=== PATIENT | female | born 1975 | race Caucasian/White ===

== ENCOUNTER → 2016-10-20 | Outpatient (CLI) | payer BC ==
--- NOTE | 2016-10-20 13:23 | US ---
EXAMINATION TYPE: US venous doppler duplex LE DATE OF EXAM: 10/20/2016 12:39 PM COMPARISON: NONE CLINICAL HISTORY: M79.604 PAIN RT LEG,M79.605 PAIN LT LEG,I83.813 VARICOSE VEI. Left lower thigh redn ess. SIDE PERFORMED: Bilateral VESSELS IMAGED: External Iliac Vein (EIV) Common Femoral Vein Deep Femoral Vein Greater Saphenous Vein * Femoral Vein Popliteal Vein Proximal Calf Veins (* superficial vessels) TECHNOLOGIST IMPRESSION: bilateral leg pain x several years , patient has history of varicose vein s tripping. Additional imaging over patient's area of concern, left lower thigh, there are multiple [place] icosities noted, that are patent. Right Leg: Negative for DVT Left Leg: Negative for DVT Satisfactory color flow and phasicity as well as compressibility is seen in bilateral lower extremiti es at above levels. At area of clinical concern left lower thigh there is elongated thin-walled anech oic area is felt to reflect known prominent varicose veins. IMPRESSION: No ultrasound evidence for acute DVT in either lower extremity.
--- NOTE | 2016-10-28 10:28 | P.ARTDOP ---
Arterial Doppler LOWER EXTREMITY ARTERIAL DOPPLER: DATE OF SERVICE: 10/20/2016 Reason for study: Right leg pain. Doppler waveforms: Multiphasic bilaterally throughout. Pulse volume recording: Normal configuration. Pressure gradients: None. Ankle-brachial indices: Greater than 1 bilaterally. Toe pressures: [] on the right, [] on the left Impression: Normal study, basic.
== END | disposition home or self-care (01) ==
LOC: RADUSWWP 11:57
PROVIDERS: ATTEND Family Medicine
DX: M79.604 Pain in right leg (principal); M79.605 Pain in left leg; R09.89 Other specified symptoms and signs involving the circulatory and respiratory systems
CPT/HCPCS: 93923; 93970

== ENCOUNTER → 2018-07-28 | Outpatient (CLI) | payer BC | END | disposition home or self-care (01) | LOC: LABWHC1 11:33 | PROVIDERS: ATTEND Nurse Practitioner Family | DX: R07.9 Chest pain, unspecified (principal); R00.2 Palpitations; I10 Essential (primary) hypertension; N91.2 Amenorrhea, unspecified | CPT/HCPCS: 36415; 83001; 93005 ==

== ENCOUNTER → 2018-07-28 | Outpatient (CLI) | payer BC | END | disposition home or self-care (01) | LOC: RADECHMAIN 12:30 | PROVIDERS: ATTEND Family Medicine | DX: R00.1 Bradycardia, unspecified (principal); R00.0 Tachycardia, unspecified; R07.9 Chest pain, unspecified; I10 Essential (primary) hypertension | CPT/HCPCS: 93225; 93226 ==

== ENCOUNTER → 2018-08-24 | Outpatient (CLI) | payer BC ==
--- NOTE | 2018-08-28 13:53 | MM ---
Reason for exam: screening (asymptomatic). Last mammogram was performed 21 years and 2 months ago. MG Screening Mammo w CAD Bilateral CC and MLO view(s) were taken. Prior study comparison: June 12, 1997, bilateral special view mammogram. April 19, 1996, screening mammogram. There are scattered fibroglandular densities. No discrete abnormality. ASSESSMENT: Negative, BI-RAD 1 RECOMMENDATION: Routine screening mammogram of both breasts in 1 year.
== END | disposition home or self-care (01) ==
LOC: RADMAMWWP 13:20
PROVIDERS: ATTEND Family Medicine
DX: Z12.31 Encounter for screening mammogram for malignant neoplasm of breast (principal)
CPT/HCPCS: 77067

== ENCOUNTER 2019-07-10 14:10 | Emergency (ER) | payer BC ==
[2019-07-10 14:18] VITALS: TEMP 97.9
[2019-07-10] MEDS ORDERED: KETOROLAC 60 MG/2 ML VIAL IVP STA (14:40)
[2019-07-10] MEDS ORDERED: HYDROmorphone 1 MG/ML 1 ML SYRINGE IVP STA ×2 (14:40→15:56)
--- NOTE | 2019-07-10 15:06 | ED ---
General Adult HPI - General Chief complaint: Recheck/Abnormal Lab/Rx Stated complaint: Chest Pain Source: patient, RN notes reviewed, old records reviewed Mode of arrival: ambulatory Limitations: no limitations - History of Present Illness Initial comments: This 43-year-old female presents emergency Department complaining of anterior chest pain. Patient states she fell yesterday onto her buttocks but as soon as she did she had terrible anterior chest pain and pain along the sternum bilaterally patient states ever since then any kind of deep breathing cough or palpation causes quite a bit of pain. Patient denies shortness of breath but taking a deep breath hurts. Patient states it happened instantaneously after she fell on her butt. Patient states she went to urgent care and they sent her to us. Patient denies any actual shortness of breath. Patient denies any fever chills. Patient denies any radiation of the pain. - Related Data Previous Rx's Medication Instructions Recorded Ketorolac [Toradol] 10 mg PO Q6HR #15 tab 07/10/19 Allergies Allergy/AdvReac Type Severity Reaction Status Date / Time No Known Allergies Allergy Verified 07/10/19 14:18 Review of Systems ROS Statement: Those systems with pertinent positive or pertinent negative responses have been documented in the HPI. ROS Other: All systems not noted in ROS Statement are negative. Past Medical History Past Medical History: Hypertension History of Any Multi-Drug Resistant Organisms: None Reported Additional Past Surgical History / Comment(s): facial surgery Past Psychological History: No Psychological Hx Reported Smoking Status: Current every day smoker Past Alcohol Use History: Occasional Past Drug Use History: Marijuana General Exam - General Exam Comments Initial Comments: GENERAL: Patient is well-developed and well-nourished. Patient is nontoxic and well- hydrated and is in moderate distress. ENT: Neck is soft and supple. No significant lymphadenopathy is noted. Oropharynx is clear. Moist mucous membranes. Neck has full range of motion without eliciting any pain. EYES: The sclera were anicteric and conjunctiva were pink and moist. Extraocular movements were intact and pupils were equal round and reactive to light. Eyelids were unremarkable. PULMONARY: Unlabored respirations. Good breath sounds bilaterally. No audible rales rhonchi or wheezing was noted. CARDIOVASCULAR: There is a regular rate and rhythm without any murmurs gallops or rubs. Patient has reproducible pain on palpation. ABDOMEN: Soft and nontender with normal bowel sounds. SKIN: Skin is clear with no lesions or rashes and otherwise unremarkable. NEUROLOGIC: Patient is alert and oriented x3. Cranial nerves II through XII are grossly intact. Motor and sensory are also intact. Normal speech, volume and content. Symmetrical smile. MUSCULOSKELETAL: Normal extremities with adequate strength and full range of motion. LYMPHATICS: No significant lymphadenopathy is noted PSYCHIATRIC: Normal psychiatric evaluation. Limitations: no limitations Course Vital Signs 07/10/19 07/10/19 14:15 14:35 Temperature 97.9 F Pulse Rate 91 Pulse Rate [ 87 [employer] ] Respiratory 20 Rate Blood Pressure 133/69 O2 Sat by Pulse 99 Oximetry Medical Decision Making - Medical Decision Making EKG shows normal sinus rhythm at 86 bpm MO interval is 170 QRS is 88 QT interval 380 QTC is 454. Patient's EKG does show some Q waves in II, III, and F aVF was Q waves are seen in leads 2 and 3 and a previous EKG Chest x-ray showed no acute abnormality. Sternal x-ray showed no acute abnormalities. Patient received Toradol and a little Dilaudid murmurs [place] considerably better. Pain was still reproducible with palpation. Patient also stated she can make the pain go away. Just a shallow breaths and didn't move. Disposition Clinical Impression: Chest wall pain Disposition: HOME SELF-CARE Condition: Good Instructions (If sedation given, give patient instructions): Chest Wall Pain (ED) Prescriptions: Ketorolac [Toradol] 10 mg PO Q6HR #15 tab Is patient prescribed a controlled substance at d/c from ED?: No Referrals: Ruddy Levy MD [Primary Care Provider] - 1-2 days Time of Disposition: 15:58
--- NOTE | 2019-07-10 15:15 | XR ---
EXAMINATION TYPE: XR sternum, XR chest 2V DATE OF EXAM: 07/10/2019 COMPARISON: NONE HISTORY: Chest pain TECHNIQUE: Frontal and lateral views of the chest are obtained. 2 views of the sternum are also subm itted. FINDINGS: There is no focal air space opacity. No evidence for pneumothorax. No pleural effusion. The cardiac silhouette size is within normal limits. The osseous structures are grossly intact. The sternum is grossly intact. IMPRESSION: 1. No acute cardiopulmonary process.
[2019-07-10 16:12] VITALS: BP 120/82; PULSE 79; RESP 18
== END 2019-07-10 16:06 | disposition home or self-care (01) ==
LOC: EC 14:10
DX: R07.89 Other chest pain (principal); I10 Essential (primary) hypertension; F17.200 Nicotine dependence, unspecified, uncomplicated
CPT/HCPCS: 71120; 71046; 99285; 96374; 96375; 96376; J1885; J1170; 99284

== ENCOUNTER → 2021-10-08 | Outpatient (CLI) | payer BC ==
--- NOTE | 2021-10-08 23:30 | XR ---
EXAMINATION TYPE: XR chest 2V DATE OF EXAM: 10/08/2021 COMPARISON: X-ray dated 07/10/2019 HISTORY: Persistent cough and dyspnea TECHNIQUE: Frontal and lateral views of the chest are obtained. FINDINGS: Small left basal pulmonary atelectasis. Questionable COPD changes, please correlate clinically. Gross ly unremarkable remainder of the lungs. No sizable pleural effusion or definite pneumothorax. No gross cardiomegaly. Mild degenerative change s of the mid to lower thoracic spine. IMPRESSION: Questionable COPD changes, please correlate clinically.
== END | disposition home or self-care (01) ==
LOC: RADXRYALE 11:42
PROVIDERS: ATTEND Physician Assistant Medical
DX: R05.3 Chronic cough (principal); R06.00 Dyspnea, unspecified; F17.210 Nicotine dependence, cigarettes, uncomplicated
CPT/HCPCS: 71046